=== PATIENT | male | born 1970 | race Caucasian/White ===

== ENCOUNTER 2024-12-14 10:00 | Emergency (ER) | payer OTHER, SELFPAY ==
--- NOTE | ~2024-12-14 | US_ITS ---
EXAMINATION: US TRIPLEX LOWER EXTREMITY, LEFT CLINICAL INFORMATION: Pain, left lower extremity. COMPARISON: None available. TECHNIQUE: Color-flow triplex imaging with spectral analysis and compression Doppler were performed on the left lower extremity. FINDINGS: Respiratory variation, normal compression and augmented flow are noted throughout the left common femoral vein, superficial femoral vein, profunda femoral vein, popliteal vein and midcalf peroneal and posterior tibial venous segments . There is no Spears's cyst. US/US venous duplex LE IMPRESSION: No acute deep venous thrombosis involving the left lower extremity. Negative DVT exam. Electronically signed by: Rohith Vargas MD 12/14/2024 11:38 AM EDT
[2024-12-14 10:26] VITALS: BP 134/84; PULSE 110; RESP 22; TEMP 36.8; O2SAT 98; BMI 32.0
[2024-12-14 10:43] LABS: MANUAL DIFF FLAG NO
[2024-12-14 10:45] LABS: Basophils Absolute Auto 0.1 X10*3/uL (0.0-0.2); Basophils Percent Auto 0.5 % (0-2); Eosinophils Absolute Auto 0.3 X10*3/uL (0.0-0.4); Eosinophils Percent Auto 3.6 % (0-4); Hematocrit 43.1 % (42.0-52.0); Imm Gran Abs Auto 0.03 X10*3/uL (0.00-0.03); Imm Gran Pct Auto 0.3 % (0.0-0.4); Lymphocytes Absolute Auto 2.9 X10*3/uL (1.2-4.9); Lymphocytes Percent Auto 30.3 % (20-40); Mean Corpuscular HGB Conc 34.8 g/dl (31.0-36.0); Mean Corpuscular Hemoglobin 31.3 pg (27.0-33.0); Mean Platelet Volume 9.6 fL (9.4-12.4); Monocytes Absolute Auto 0.5 X10*3/uL (0.1-1.2); Monocytes Percent Auto 5.6 % (2-11); Neutrophils Absolute Auto 5.7 x10*3/uL (2.0-8.3); Neutrophils Percent Auto 59.7 % (45-73); Platelet Count 213 X10*3/uL (160-400); Red Blood Count 4.79 X10*6/uL (4.60-5.80); Red Cell Distribution Width 13.4 % (11.0-16.0); White Blood Count 9.6 X10*3/uL (4.8-10.8)
[2024-12-14 10:51] LABS: Prothrombin Time 11.8 SEC (10.9-12.4)
[2024-12-14 11:16] LABS: Alanine Aminotransferase 95 U/L (0-40); Albumin Level 4.6 g/dL (3.5-5.0); Alkaline Phosphatase 125 U/L (39-117); Anion Gap 17 (12-20); Aspartate Amino Transferase 69 U/L (5-37); Bilirubin Total 0.7 mg/dL (0.0-1.0); Blood Urea Nitrogen 13 mg/dL (9-16); Calcium 9.7 mg/dL (8.4-10.2); Carbon Dioxide 22 mmol/L (22-29); Chloride 103 mmol/L (96-108); Creatinine Clr Calc Pharmacy 142.3; Estimated Glomerular Filt Rate > 60; Glucose Random 254 mg/dL (60-115); Potassium 4.2 mmol/L (3.3-5.1); Sodium 138 mmol/L (135-145); Total Protein 8.4 g/dL (6.5-8.0)
--- NOTE | 2024-12-14 11:50 | ED.GENADULT ---
HPI - General Adult General Chief complaint: General Medical Stated complaint: sciatica pain Time Seen by Provider: 12/14/24 11:50 Source: patient Mode of arrival: ambulatory Limitations: no limitations History of Present Illness ED Provider: Kanwal Jesus PA-C HPI narrative: Patient is a 54 year old male with a past medical history of right shoulder injury and previous [place] who presents to the ED for complaints of left leg pain. He states the pain began 2 weeks ago and has been intermittent. It radiates from his left buttock down to his left foot. He also endorses some intermittent numbness of his left calf and foot. Denies weakness of the extremity. He denies any recent events that could have led to injury of the area. States he has been stretching the extremity with no relief. He also endorses right shoulder and neck pain for which he currently has an outpatient MRI scheduled. He has no other complaints at this time. Onset (ago): week(s) (2) Location: buttocks and lower extremity Radiation: distal Quality: dull Pain Consistency: intermittent Relieving factors: immobilization Exacerbating factors: movement Associated symptoms: denies other symptoms Related Data Previous Rx's ?Medication ?Instructions ?Recorded cyclobenzaprine 5 mg tablet 5 mg PO TID PRN muscle spasm 7 12/14/24 days #21 tabs prednisone 20 mg tablet 20 mg PO DAILY 7 days #7 tabs 12/14/24 Allergies Allergy/AdvReac Type Severity Reaction Status Date / Time No Known Allergies Allergy Verified 12/14/24 10:31 Review of Systems Review of Systems: Yes all other systems are reviewed and are negative Constitutional: Constitutional: Reports no additional constitutional complaints, Denies chills, Denies fever(s) and Denies night sweats Eyes: Eyes: Reports no additional eye complaints, Denies blurry vision, Denies change in vision, Denies diplopia, Denies eye discharge, Denies loss of vision and Denies eye pain ENT: Denies dizziness Cardiovascular: Cardiovascular: Reports no additional cardiovascular complaints, Denies chest pain, Denies lightheadedness, Denies Loss of Consciousness and Denies dyspnea Respiratory: Respiratory: Reports no additional respiratory complaints and Denies dyspnea Gastrointestinal: Gastrointestinal: Reports no additional gastrointestinal complaints, Denies abdominal pain, Denies melena, Denies hematochezia, Denies change in bowel habits and Denies change in stool character Genitourinary: Genitourinary: Reports no additional male genitourinary complaints, Denies hematuria, Denies oliguria, Denies difficulty urinating, Denies dysuria, Denies urinary frequency, Denies urinary hesitancy, Denies urinary incontinence and Denies urinary urgency Musculoskeletal: Musculoskeletal: Reports no additional musculoskeletal complaints, Reports back pain (left sided) and Reports radiating pain into limb Comments: intermittent numbness and tingling in the left lower leg, foot, and toes Neurologic: Denies dizziness and Denies loss of vision Psychiatric: Psychiatric: Reports no additional psychiatric complaints Endocrine: Endocrine: Reports no additional endocrine complaints Hematologic/Lymphatic: Hematologic/Lymphatic: Reports no additional hematologic/lymphatic complaints Allergic/Immunologic: Allergic/Immunologic: Reports no additional allergic/immunologic complaints PMFSH Past Medical History Attestation statement: The following information was validated with the patient. Source: old records reviewed and nursing notes reviewed Social History Social History Advance Directives: Yes Advance Directives Information Provided: Yes Advance Directives on File: No Physical Exam ED Vital Signs: Vital Signs - 24 hr 12/14/24 10:26 12/14/24 12:00 12/14/24 12:57 Temperature 98.2 F 98.4 F 98.4 F Pulse Rate 110 H 99 99 Respiratory Rate 22 H 12 12 Blood Pressure 134/84 127/93 H 127/93 H Pulse Oximetry 98 97 97 Oxygen Delivery Method Room Air Room Air Room Air BMI result Body Mass Index 32.0 Const General: cooperative, no acute distress, alert and awake Nutritional Appearance: well nourished Orientation/consciousness: patient oriented x3 Limitations: no limitations [facility] Head: Yes normal to inspection and Yes atraumatic Ears: hearing grossly normal bilaterally and external ears normal General nose exam: Normal external nose present, no nasal discharge noted and no epistaxis Face and sinus: Yes normal facial exam, No abrasion and No laceration Mouth: Normal oral and palatal mucosa present, no drooling and no muffled voice Eyes General: appearance normal, both eyes and all related structures Periorbital: periorbital findings normal Eyelids: Yes eyelids normal Conjunctivae: conjunctivae normal Pupils: Equal, round and reactive pupils present EOM: EOMs intact bilaterally Neck Neck: Yes normal visual inspection, Yes full ROM and Yes no lymphadenopathy Chest Chest palpation & inspection: normal inspection of the chest Resp Effort & Inspection: normal respiratory effort and able to speak in complete sentences GI Inspection: Yes normal to inspection Back/Spine/Pelvis Cervical Spine: normal cervical lordosis Thoracic/Lumbar Spine: thoraco-lumbar ROM normal Pelvis: buttock tenderness Neuro General: patient oriented x3, moves all extremities and CN's II-XI intact bilaterally Cranial nerves: Yes Equal, round and reactive pupils present Cognition (Neuro): normal cognition Motor exam (neuro): 5/5 motor strength present throughout Extrem General: Yes normal to inspection, Yes full ROM and Yes capillary refill normal Left lower extremity: full ROM, normal capillary refill, hip/thigh Details: normal ROM, knee Details: normal ROM, lower leg, ankle Details: normal ROM and foot Details: normal capillary refill, normal to inspection, no edema and motor-sensory exam; no cyanosis and no edema Psych Appearance: grossly normal Mental Status: mental status grossly normal Affect: normal affect Attitude: cooperative Thought process: Normal thought process present Thought content: Normal thought content present Insight: Good insight present (Psych) Medications Administered Discontinued Medications Generic Name Dose Route Start Last Admin Trade Name Freq PRN Reason Stop Dose Admin Cyclobenzaprine HCl 5 mg 12/14/24 12:18 12/14/24 12:43 Cyclobenzaprine Hcl 5 Mg Tablet PO 12/14/24 12:19 5 mg ONCE ONE Administration Methylprednisolone Sodium Succinate 60 mg 12/14/24 12:18 12/14/24 12:44 Methylprednisolone Sod Succ 125 Mg/2 Ml Vial IM 12/14/24 12:19 60 mg ONCE ONE Administration Medical Decision Making Medical Decision Making [facility] Narrative: Patient is a 54 year old male who presented to the ED for intermittent left lower extremity pain and numbness that began 2 weeks ago. LLE ultrasound was done which was negative for DVT. He has no recent history of injuries or to the lower back making HNP less likely. His DP and PT pulses are intact with good capillary refill of the LLE. He maintains 5/5 strength with dorsiflexion and plantarflexion. His symptoms of pain radiating from his buttock down the left lower extremity and intermittent paresthesias are consistent with sciatica. Patient's labs unremarkable. Patient appeared well and in no acute distress in the emergency department. His vitals remained within normal limits. I explained my physical exam findings as well as all test results to the patient. I answered all questions asked by the patient. I stressed the importance of the patient taking his medication as directed (either prescribed or as the over the counter packaging recommends). I stressed the importance of the patient following up with his primary care provider and a exercise equipment specialist. I stressed the importance of the patient returning to the emergency department immediately if his symptoms were to worsen or if he were to develop any dizziness, shortness of breath, difficulty breathing, chest pain, blurry vision, loss of vision, nausea, vomiting, abdominal pain, fever, chills, back pain, or any other complaints. Patient verbalized agreement and understanding with this treatment plan and discharge. Differential Diagnosis Differential Diagnoses: The differential diagnosis associated with the presentation includes Low back pain Sciatica Lumbar strain Lumbar sprain Admission/Observation Consideration of admission/observation: Escalation of care including admission/observation considered Patient would have been admitted to the hospital had his work up had any findings where hospital admission was appropriate and his clinical presentation warranted hospital admission. Lab Data [facility] Lab Attestation statement: I reviewed the patient's lab results. My interpretation of these results are in the [facility] Rationale portion of this note. 12/14/24 10:40 12/14/24 10:40 Labs: Lab Results 12/14/24 Range/Units 10:40 WBC 9.6 (4.8-10.8) X10*3/uL RBC 4.79 (4.60-5.80) X10*6/uL Hgb 15.0 (14.0-18.0) g/dl Hct 43.1 (42.0-52.0) % MCV 90.0 (80.0-98.0) fL MCH 31.3 (27.0-33.0) pg MCHC 34.8 (31.0-36.0) g/dl RDW 13.4 (11.0-16.0) % Plt Count 213 (160-400) X10*3/uL MPV 9.6 (9.4-12.4) fL Immature Gran % (Auto) 0.3 (0.0-0.4) % Neut % (Auto) 59.7 (45-73) % Lymph % (Auto) 30.3 (20-40) % Lanier % (Auto) 5.6 (2-11) % Eos % (Auto) 3.6 (0-4) % Baso % (Auto) 0.5 (0-2) % Lymph # (Auto) 2.9 (1.2-4.9) X10*3/uL Lanier # (Auto) 0.5 (0.1-1.2) X10*3/uL Eos # (Auto) 0.3 (0.0-0.4) X10*3/uL Baso # (Auto) 0.1 (0.0-0.2) X10*3/uL Abs Immat Gran (auto) 0.03 (0.00-0.03) X10*3/uL Absolute Neuts (auto) 5.7 (2.0-8.3) x10*3/uL Absolute Nucleated RBC 0.000 (0.0-0.012) X10*3/uL Nucleated RBC % (auto) 0.0 (0.0-0.2) /100WBC PT 11.8 (10.9-12.4) SEC INR 1.0 (0.9-1.1) Sodium 138 (135-145) mmol/L Potassium 4.2 (3.3-5.1) mmol/L Chloride 103 (96-108) mmol/L Carbon Dioxide 22 (22-29) mmol/L Anion Gap 17 (12-20) BUN 13 (9-16) mg/dL Creatinine 0.79 (0.5-1.4) mg/dL Estim Creat Clear Calc 142.3 Estimated GFR > 60 Random Glucose 254 H (60-115) mg/dL Uric Acid 7.0 (3.4-7.0) mg/dL Calcium 9.7 (8.4-10.2) mg/dL Total Bilirubin 0.7 (0.0-1.0) mg/dL AST 69 H (5-37) U/L ALT 95 H (0-40) U/L Alkaline Phosphatase 125 H (39-117) U/L Total Protein 8.4 H (6.5-8.0) g/dL Albumin 4.6 (3.5-5.0) g/dL Independent Interpretation I performed an independent interpretation of an: Ultrasound Interpretation: My interpretation is in agreement with the radiologist's impression of this imaging study. EXAMINATION: US TRIPLEX LOWER EXTREMITY, LEFT CLINICAL INFORMATION: Pain, left lower extremity. COMPARISON: None available. TECHNIQUE: Color-flow triplex imaging with spectral analysis and compression Doppler were performed on the left lower extremity. FINDINGS: Respiratory variation, normal compression and augmented flow are noted throughout the left common femoral vein, superficial femoral vein, profunda femoral vein, popliteal vein and midcalf peroneal and posterior tibial venous segments . There is no Spears's cyst. US/US venous duplex LE LT IMPRESSION: No acute deep venous thrombosis involving the left lower extremity. Negative DVT exam. Electronically signed by: Rohith Vargas MD 12/14/2024 11:38 AM EDT RP Dictated By: Rohith Adkins MD Signed By: Electronically signed by Rohith Cannon MD 12/14/24 113 Radiology Impression Discussion of test interpretation with radiology: I have reviewed the radiologist's reading. Prescription Management I considered prescription management with: Pain Medication (patient prescribed pain medication) Discharge Plan Discharge Clinical Impression: Sciatica Patient Disposition: Home, Self-Care Instructions: Sciatica (ED) Additional Instructions: Follow up with your primary care provider and a exercise equipment specialist. Return to the emergency department immediately if your symptoms worsen or if you develop any numbness, tingling, dizziness, shortness of breath, difficulty breathing, chest pain, blurry vision, loss of vision, nausea, vomiting, abdominal pain, fever, chills, back pain, or any other complaints. Please see the information below about our Patient Portal. If you are not yet enrolled in the [facility] Patient Portal, you will receive an enrollment email invitation following your visit to any [facility] setting. You may also self-enroll in the Patient Portal by visiting our website: [email or web address] The following information is required to access the Patient Portal: - Your [facility] Medical Record Number - Your personal home email address (must match what is in your electronic medical record, Registration staff can assist with this) - Name - Date of Capabilities of the Patient Portal: - Message some providers - View upcoming appointments - Access your health summary, medical history, and visit history - View current conditions and allergies - View procedure and lab results - View your medications, including guidelines, side effects, and precautions - Complete pre-appointment questionnaires requested by your provider - Ready summary reports of your office visits and procedures To access the Patient Portal Mobile Jie, follow these directions: - Search [employer] in the Jie Store or Google Play Store - Download the Jie - Search for [facility] - Enter your login/password Prescriptions: New prednisone 20 mg tablet 20 mg PO DAILY 7 Days Qty: 7 0RF cyclobenzaprine 5 mg tablet 5 mg PO TID PRN (Reason: muscle spasm) 7 Days Qty: 21 0RF Referrals: [facility] [Provider Group] (Call to establish and follow up with a exercise equipment specialist.) [facility] [Provider Group] (Call to establish and follow up with a exercise equipment specialist.) Shant Castillo MD [Primary Care Provider] - Interventions: ED Discharge Assessment Last Done: 12/14/24 12:57 Discharge Date/Time: 12/14/24 12:58 Print Language: Prydeinig
[2024-12-14 12:00] VITALS: BP 127/93; PULSE 99; RESP 12; TEMP 36.9; O2SAT 97
[2024-12-14] MEDS: Cyclobenzaprine HCl 5 MG TABLET PO (12:43)
[2024-12-14] MEDS: methylPREDNISolone Sod Succ 125 MG/2 ML VIAL 60 MG IM (12:44)
[2024-12-14 12:57] VITALS: BP 127/93; PULSE 99; RESP 12; TEMP 36.9; O2SAT 97
== END 2024-12-14 12:58 | disposition home or self-care (01) ==
PROVIDERS: Emergency Provider Emergency Medicine Emergency Medical Services; PCP Internal Medicine
DX: M54.42 Lumbago with sciatica, left side (principal); R60.0 Localized edema; R20.0 Anesthesia of skin
CPT/HCPCS: 36415; 80053; 84550; 85025; 85610; 93971; 96372; 99283; 99284; J2919

== ENCOUNTER → 2024-12-14 11:22 | Outpatient (BNV) | payer OTHER, SELFPAY | PROVIDERS: Emergency Provider Emergency Medicine Emergency Medical Services; PCP Internal Medicine; Visit Provider Radiology Diagnostic Radiology | DX: M54.32 Sciatica, left side (principal) | CPT/HCPCS: 93971 ==

== ENCOUNTER 2025-09-08 17:42 | Emergency (ER) | payer OTHER, SELFPAY ==
--- NOTE | ~2025-09-08 | XR_ITS ---
CLINICAL HISTORY: cough 2 view chest x-ray. Comparison: None provided Findings: Heart size is normal. No consolidation or effusion. No acute fracture. The visualized upper abdomen is unremarkable. Impression: No acute cardiopulmonary process. This document has been electronically signed by: Nayeli Woodward MD on 09/08/2025 19:27:36
--- OUTSIDE RECORDS SUMMARY | 2025-09-08 11:30 | XMS_ITS | Encounter Summary ---
Author Organization [facility] Address [address] [place] [address] Care Team Providers Care Cpa Tax Name Role Phone Tommie Dunn Primary Care Provider [phone] Reason for Visit * Reason Comments Cough X 3 days Nasal Congestion Encounter Details Date Type Department Care Team (Late st Contact Info) Description 09/08/2025 11:30 AM EST Office Visit Adult Medicine [facility] [address] [place], [place] [phone] Mikal Dangelo PA [address] [place], [place] Rhonchi at right lung base (Primary Dx); Acute cough; Sinus pressure Social History Tobacco Use Types Packs/Day Years Used Date Smoking Tobacco: Every Day Cigarettes 0.5 33.9 Started: 09/30/1991 Smokeless Tobacco: Never Tobacco Cessation:Ready to Q uit: Not Asked; Counseling Given: Not Answered Alcohol Use Standard Drinks/Week Comments Yes 16.7 (1 standard drink = 0.6 oz pure alcohol) Housing Instability Answer Date Recorde d Are you worried that in the next 2 months you may not have stable housing? No 05/06/2025 Food Access & Nutrition Answer Date Rec orded Do you have access to a vari ety of food including fruits and vegetables? Yes 05/06/2025 Health Literacy Answer Date Recorded How often do you need to hav e someone help you when you read instructions, pamphlets, or other written material from your doctor or pharmacy? Never 05/06/2025 Caregiver: How often do you need to have someone help you when you read instructions, pamphlets, or other written material from your doctor or pharmacy? Not on file 05/06/2025 Financial Risk Answer Date Recorded How hard is it for you to pa y for the very basics like food, housing, medical care, and air conditioning / heating? Not very hard 05/06/2025 Transportation Answer Date Recorded Has the lack of transportati on kept you from meetings, work, or from getting things needed for daily living? No Has the lack of transportati on kept you from medical appointments or from getting medications? No 05/06/2025 Social Isolation Answer Date Recorded How often do you feel lonely or isolated from th ose around you? Never 05/06/2025 Food Risk Answer Date Recorded Within the past 12 months we worried whether our food would run out before we got money to buy more. Never true 05/06/2025 Within the past 12 months th e food we bought just didn't last and we didn't have money to get more. Never true 05/06/2025 Dependent Care Answer Date Recorded Do you need help finding or paying for care for your loved ones. For example, child psychiatrist or elderly care for an older adult? No 05/06/2025 Education Answer Date Recorded Do you think completing more education or training, like finishing a GED, going to college, or learning a trade, would be helpful for you? No 05/06/2025 Employment and Income Answer Date Recor ded During the last four weeks, have you been actively looking for work? No 05/06/2025 Living Situation Answer Date Recorded What is your living situation? Unrecognized valu e 05/06/2025 Interpersonal Safety Answer Date Record ed Physical Abuse Unrecognized value 05/20/2025 Verbal Abuse Unrecognized value 05/20/2025 Sex and Gender Information Value Date Recorded Sex Assigned at Not on file Legal Sex Male 9:43 AM EST Gender Identity Not on file Sexual Orientation Not on file documented as of this encounter Last Filed Vital Signs Vital Sign Reading Time Taken Comments Blood Pressure 100/79 09/08/2025 11:40 AM EST Pulse 125 09/08/2025 11:40 AM EST Temperature 36.2 C (97.1 F) 09/08/2025 11:40 AM EST Respiratory Rate 15 09/08/2025 11:40 AM EST Oxygen Saturation 96% 09/08/2025 11:40 AM EST Inhaled Oxygen Concentration - - Weight 104 kg (229 lb) 09/08/2025 11:40 AM EST Height 180.3 cm (5' 11 ) 09/08/2025 11:40 AM EST Body Mass Index 31.94 09/08/2025 11:40 AM EST documented in this encounter Ordered Prescriptions Prescription Sig Dispense Quantity Refills Last Filled Start Date End Date doxycycline (VIBRAMYCIN) 100 mg capsule Take 1 capsule (100 mg total) by mouth 2 (two) times a day for 7 days. Take with at least 8 ounces (large glass) of water, do not lie down for 30 minutes after. Administer 2 hours before or after multivitamins, antacids, or other products containing polyvalent cations (i.e., calcium, iron, magnesium, selenium, zinc). 14 each 09/08/2025 amoxicillin-clavul anate (AUGMENTIN) 875-125 mg per tablet Take 1 tablet by mouth 2 (two) times a day for 7 days. 14 each 09/08/2025 5 documented in this encounter Progress Notes * JOE Jaime - 09/08/2025 11:30 AM EST CHIEF COMPLAINT: Cough (X 3 days) and Nasal Congestion IDENTIFIER: Joe Chen is a 55 y.o. old male who comes alone. HPI: 55 y/o M presenting with sinus congestion and cough x 3 days. He also reports some intermittent headaches. Denies chest pain or dyspnea. He does report some rib discomfort with coughing. When he laysflat the post nasal drip worsens the coughing but no orthopnea. No syncope, near syncope, fevers, or chills. No travel or surgery in last 3 months. 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 Wt Readings from Last 5 Encounters: 09/08/25 104 kg (229 lb) 06/07/25 110 kg (242 lb 12.8 oz) 05/14/25 107 kg (235 lb) 05/06/25 107 kg (235 lb 6.4 oz) 04/30/25 107 kg (236 lb) Pulse Readings from Last 3 Encounters: 09/08/25 (!) 125 06/07/25 73 05/20/25 98 ROS: See HPI No leg swelling or calf tenderness. Long standing hx of sciatica. No abdominal pain or bruising. PAST MEDICAL HISTORY: Patient Active Problem List Diagnosis Date Noted Right thyroid nodule 04/30/2025 Class 1 obesity 09/04/2024 Type 2 diabetes mellitus without complication, without long-term current use of insulin ([facility] V24, [facility] V28) 05/26/2024 Obstructive sleep apnea 08/12/2017 Bicuspid aortic valve 10/17/2016 Obesity 07/15/2014 Dilated aortic root ([facility] V24) 06/25/2014 Dyslipidemia 12/29/2012 HTN (hypertension) 12/29/2012 Elevated LFTs 12/13/2011 Old DE (myocardial infarction) 07/16/2008 Tobacco use disorder 06/04/2006 Gout, unspecified 11/24/2005 Sprain of acromioclavicular ligament 11/24/2005 ACTIVE MEDICATIONS: Medications Taking[1] ALLERGIES: Current Allergies[2] PHYSICAL EXAM: Visit Vitals BP 100/79 Pulse (!) 125 Temp 36.2 ??C (97.1 ??F) (Temporal) Resp 15 Ht 1.803 m (71 ) Wt 104 kg (229 lb) SpO2 96% BMI 31.94 kg/m?? Smoking Status Every Day BSA 2.23 m?? APPEARANCE: Alert and in no acute distress HEART: tachycardia, 2/6 systolic murmur LUNG: expiratory rhonchi right lung base. Otherwise CTAB. EXTREMITIES: Extremities warm and well perfused without clubbing, cyanosis, or edema. No calf tenderness. SKIN: Skin color, texture, turgor normal. No rashes or lesions. PSYCH: Stable mood and affect. Nonpressured speech. IMPRESSION: 1. Rhonchi at right lung base 2. Acute cough 3. Sinus pressure PLAN: I am worried he has pneumonia based on the tachycardia, cough, abnormal lung sounds. Will get x-ray. Will also check CBC and CMP. Will start treatment with augmentin and doxycycline for 7 days. SE reviewed. Discussed that pneumonia can be life threatening, and in the event of worsening symptoms despite treatment (if not having any improvement after 2-4 days) he needs ER evaluation. He agreed withthe above plan. My colleagues and I have maintained a longitudinal relationship with this patient and serve as a focal point of their care. Orders Placed This Encounter Procedures XR Chest 2 Views CBC and differential Comprehensive metabolic panel ADDITIONAL ORDERS: None Today's documentation was made using voice recognition software.This note may contain grammatical errors secondary to this software. JOE Jaime on 09/08/2025 at 11:57 AM EST [1] Outpatient Medications Marked as Taking for the 09/08/25 encounter (Office Visit) with JOE Jaime Medication Sig Dispense Refill allopurinoL (ZYLOPRIM) 100 mg tablet TAKE 1 TABLET BY MOUTH DAILY. TAKE IN ADDITION TO A 300 MG TAB, TOTAL 400 MG DAILY 90 tablet 1 allopurinoL (ZYLOPRIM) 300 mg tablet TAKE 1 TABLET BY MOUTH DAILY. TAKE IN ADDITION TO A 100 MG TAB, TOTAL 400 MG DAILY 90 tablet 1 amLODIPine (NORVASC) 10 mg tablet TAKE 1 TABLET BY MOUTH EVERY DAY 90 tablet 1 aspirin 81 mg EC tablet Take 1 Tab by mouth daily. atorvastatin (LIPITOR) 40 mg tablet Take 1 tablet (40 mg total) by mouth 1 (one) time each day. 90 each 3 blood sugar diagnostic (FreeStyle Lite Strips) test strip Use to check blood sugar once daily blood-glucose meter misc fluticasone propionate (FLONASE) 50 mcg/actuation nasal spray 2 Sprays by Each Nare route daily. FREESTYLE LANCETS MISC Use to check blood sugar once daily hydrOXYzine HCL (ATARAX) 25 mg tablet TAKE 1 TABLET BY MOUTH ONCE DAILY NEEDED FOR ITCHING. 90 tablet 3 lisinopriL (PRINIVIL,ZESTRIL) 10 mg tablet TAKE 1 TABLET BY MOUTH EVERY DAY 90 tablet 1 metFORMIN (GLUCOPHAGE) 500 mg tablet TAKE 1 TABLET BY MOUTH TWICE A DAY WITH MEALS 180 tablet 1 metoprolol succinate (TOPROL-XL) 100 mg 24 hr tablet Take 1 tablet (100 mg total) by mouth 1 (one) time each day. 90 tablet 3 oxyCODONE (ROXYBOND) 5 mg immediate release abuse-deterrent tablet Take 1 tablet (5 mg total) by mouth every 6 (six) hours if needed for severe pain. Max Daily Amount: 20 mg 12 tablet 0 traZODone (DESYREL) 50 mg tablet TAKE 1 TO 3 TABLET BY MOUTH AT BEDTIME NEEDED FOR SLEEP 270 tablet 1 [2] No Known Allergies documented in this encounter Plan of Treatment Upcoming Encounters Date Type Department Care Team (Late st Contact Info) Description 09/27/2025 10:00 AM EST Consult Adult Medicine [address] [phone] Tommie Dunn PA [address] [place] [phone] 10/13/2025 3:30 PM EST Office Visit [address] [phone] Tommie Dunn PA [address] [place] [phone] 11/02/2025 10:30 AM EST Consult Gastroenterology - [address] [phone] aLura Melvin PA [address] [address] documented as of this encounter Results * (ABNORMAL) Comprehensive metabolic panel (09/08/2025 12:38 PM EST) Sodium 129(L) 133 - 145 mmol/L 09/08/2025 5:03 PM [facility] Potassium 3.5 3.5 - 5.5 mmol/L 09/08/2025 5:03 PM [facility] Chloride 92(L) 96 - 110 mmol/L 09/08/2025 5:03 PM [facility] CO2 21 21 - 32 mmol/L 09/08/2025 5:03 PM [facility] Anion Gap 16(H) 3 - 11 09/08/2025 5:03 PM [facility] Glucose 275(H) 70 - 100 mg/dL 09/08/2025 5:03 PM [facility] BUN 8 5 - 25 mg/dL 09/08/2025 5:03 PM [facility] Creatinine 0.97 0.70 - 1.30 mg/dL 09/08/2025 5:03 PM [facility] eGFR 93 >=60 mL/min/1. 73m2 09/08/2025 5:03 PM [facility] Comment:Calculation based on the Chronic Kidney Disease Epidemiology Collaboration (CKD-EPI) equation refit without adjustment for race. BUN/Creatinine Ratio 8.2 09/08/2025 5:03 PM [facility] Calcium 8.5 8.5 - 10.5 mg/dL 09/08/2025 5:03 PM [facility] AST (SGOT) 132(H) 10 - 42 unit/L 09/08/2025 5:03 PM [facility] ALT (SGPT) 208(H) 10 - 60 unit/L 09/08/2025 5:03 PM [facility] Alkaline Phosphatase 232(H) 42 - 121 unit/L 09/08/2025 5:03 PM [facility] Total Protein 7.4 6.0 - 8.0 g/dL 09/08/2025 5:03 PM [facility] Albumin 4.1 3.2 - 5.0 g/dL 09/08/2025 5:03 PM [facility] Total Bilirubin 1.3 0.0 - 1.4 mg/dL 09/08/2025 5:03 PM [facility] Blood Venous blood specimen / Unknown Venipuncture / Unknown 09/08/2025 12:38 PM EST 09/08/2025 12:38 PM EST us Mikal DIAZ LAB BLOOD ORDERABLES Fin al Result [facility] [address] [place] [address], * XR Chest 2 Views (09/08/2025 12:05 PM EST) Anatomical Region Laterality Modality Body Radiographic Rachel ging 09/08/2025 3:32 PM EST Impressions 09/08/2025 3:38 PM EST No evidence of an acute chest process. POS - [id number] -------- FINAL REPORT -------- Dictated By: Maribell Chen Dictated Date: 09/08/2025 15:32 ET Assigned Physician: Maribell Chen Reviewed and Electronically Signed By: Maribell Chen Signed Date: 09/08/2025 15:38 ET Workstation ID: [id number] Transcribed By: Self Edit Transcribed Date: 09/08/2025 15:32 ET Narrative 09/08/2025 3:38 PM EST EXAM: Chest x-ray HISTORY: Cough. Rhonchi at right lung base. COMPARISON: None FINDINGS: PA and lateral views of the chest were performed. No focal infiltrate, pleural effusion, or evidence of pulmonary edema. Heart is not enlarged. Mediastinal contours appear within normal limits. Minimal anterior wedging of what appear to be T11 and T12 could be physiologic. Surgical clips in the right lower neck. Procedure Note Maribell Chen MD - 09/08/2025 EXAM: Chest x-ray HISTORY: Cough. Rhonchi at right lung base. COMPARISON: None FINDINGS: PA and lateral views of the chest were performed. No focal infiltrate, pleural effusion, or evidence of pulmonary edema.Heart is not enlarged. Mediastinal contours appear within normal limits.Minimal anterior wedging of what appear to be T11 and T12 could bephysiologic. Surgical clips in the right lower neck. IMPRESSION: No evidence of an acute chest process. POS - [id number] -------- FINAL REPORT -------- Dictated By: Maribell Chen Dictated Date: 09/08/2025 15:32 ET Assigned Physician: Maribell Chen Reviewed and Electronically Signed By: Maribell Chen Signed Date: 09/08/2025 15:38 ET Workstation ID: [id number] Transcribed By: Self Edit Transcribed Date: 09/08/2025 15:32 ET us Mikal DIAZ IMG XR PROCEDURES Final Result documented in this encounter Visit Diagnoses Diagnosis Rhonchi at right lung base- Primary Acute cough Sinus pressure Other diseases of nasal cavity and sinuses Rhonchi at right lung base Acute cough Sinus pressure Other diseases of nasal cavity and sinuses documented in this encounter Additional Health Concerns Assessment Noted Time PHQ-9 Depression Total Score: 0 05/06/20 25 10:18 AM EDT documented as of this encounter Care Teams Cpa Tax Relationship Specialty Start Date End Date Tommie Dunn PA [address] [place] [address] PCP - General Internal Medicine 01/05/21 documented as of this encounter
--- OUTSIDE RECORDS SUMMARY | 2025-09-08 11:57 | XMS_ITS | Encounter Summary ---
Author Organization [facility] [place] [address] Care Team Providers Care Automotive Technology Instructor Name Role Phone Tommie Dunn Primary Care Provider [phone] Encounter Details Date Type Department Care Team (Latest Contact Info) Description 09/08/2025 11:57 AM EST Hospital Encounter XRAY - [place] [address] [facility] [place] [address] Rhonchi at right lung base; Acute cough; Sinus pressure Social History Tobacco Use Types Packs/Day Years Used Date Smoking Tobacco: Every Day Cigarettes 0.5 33.9 Started: 09/30/1991 Smokeless Tobacco: Never Alcohol Use Standard Drinks/Week Comments Yes 16.7 [...] for your loved ones. For example, child welfare specialist or elderly care for an older adult? [...] on file documented as of this encounter Plan of Treatment Upcoming Encounters Date Type Department Care Team (Late st Contact Info) Description 09/27/2025 10:00 AM EST Consult Adult Medicine [address] [phone] Tommie Dunn PA [address] [place] [phone] 10/13/2025 3:30 PM EST Office Visit Adult Medicine [address] [phone] Tommie Dunn PA [address] [place] [phone] 11/02/2025 10:30 AM EST Consult Gastroenterology - [address] [facility] [address] [place] [address] Laura Melvin PA [address] [facility] [address] [place] [address] documented as of this encounter Procedures Procedure Name Priority Date/Time Associated Diagnosis Comments XR CHEST 2 VIEWS Routine 09/08/2025 12:0 5 PM EST Rhonchi at right lung base Acute cough Sinus pressure documented in this encounter Results * XR Chest 2 Views (09/08/2025 12:05 PM EST) Anatomical Region Laterality Modality Body Radiographic Rachel ging 09/08/2025 3:32 PM EST Impressions 09/08/2025 3:38 PM EST No evidence of an acute chest process. POS - [id number] -------- FINAL REPORT -------- Dictated By: Maribell Chen Dictated Date: 09/08/2025 15:32 ET Assigned Physician: Maribell Chen Reviewed and Electronically Signed By: Maribell Chen Signed Date: 09/08/2025 15:38 ET Workstation ID: [id number] Transcribed By: Self Edit Transcribed Date: 09/08/2025 [...] of an acute chest process. POS - [id number] -------- FINAL REPORT -------- Dictated By: Maribell Chen Dictated Date: 09/08/2025 15:32 ET Assigned Physician: Maribell Chen Reviewed and Electronically Signed By: Maribell Chen Signed Date: 09/08/2025 15:38 ET Workstation ID: [id number] Transcribed By: Self Edit Transcribed Date: 09/08/2025 15:32 ET Mikal DIAZ IMG XR PROCEDURES Final Result documented in this encounter Visit Diagnoses Diagnosis Rhonchi at right lung base Acute cough Sinus pressure Other diseases of nasal cavity and sinuses documented in this encounter Additional Health Concerns Assessment Noted Time PHQ-9 Depression Total Score: 0 05/06/20 25 10:18 AM EDT documented as of this encounter Care Teams Automotive Technology Instructor Relationship Specialty Start Date End Date Tommie Dunn PA [address] [place] [phone] PCP - General Internal Medicine 01/05/21 documented as of this encounter
--- OUTSIDE RECORDS SUMMARY | 2025-09-08 12:10 | XMS_ITS | Encounter Summary ---
Author Organization [facility] [place] [address] Care Team Providers Care Platform Operations Director Name Role Phone Tommie Dunn Primary Care Provider [phone] Encounter Details Date Type Department Care Team (Late st Contact Info) Description 09/08/2025 12:10 PM EST Lab Draw Station [address] Rhonchi at right lung base; Acute cough; Sinus pressure; Pre-op examination; History of partial thyroidectomy Social History Tobacco Use Types Packs/Day Years [...] for your loved ones. For example, child monitor or elderly care for an older adult? [...] 09/27/2025 10:00 AM EST Consult Adult Medicine [address] [phone] Tommie Dunn PA [address] [place] [phone] 10/13/2025 3:30 PM EST Office Visit Adult Medicine [address] [phone] Tommie Dunn PA [address] [place] [phone] 11/02/2025 10:30 AM EST Consult Gastroenterology - [address] [facility] [address] [place] [phone] Laura Melvin PA [address] [facility] [address] [place] [address] documented as of this encounter Procedures Procedure Name Priority Date/Time Associated Diagnosis Comments CBC WITH AUTO DIFFERENTIAL Routine 09/08/2025 12:38 PM EST Rhonchi at right lung base Acute cough Sinus pressure CBC AND DIFFERENTIAL Routine 09/08/2025 12:38 PM EST Rhonchi at right lung base Acute cough Sinus pressure THYROID STIMULATING HORMONE Routine 09/08/2025 12:38 PM EST History of partial thyroidectomy COMPREHENSIVE METABOLIC PANEL Routine 09/08/2025 12:38 PM EST Rhonchi at right lung base Acute cough Sinus pressure documented in this encounter Results * (ABNORMAL) CBC auto differential (09/08/2025 12:38 PM EST) WBC 15.3(H) 4.8 - 10.8 K/mcL LAB HEMETOLOGY METHOD 09/08/2025 2:37 PM [facility] RBC 4.80 4.50 - 5.50 M/mcL LAB HEMETOLOGY METHOD 09/08/2025 2:37 PM [facility] Hemoglobin 14.8 13.5 - 17.5 g/dL LAB HEMETOLOGY METHOD 09/08/2025 2:37 PM [facility] Hematocrit 42.3 42.0 - 54.0 % LAB HEMETOLOGY METHOD 09/08/2025 2:37 PM [facility] MCV 88.7 79.0 - 98.0 FL LAB HEMETOLOGY METHOD 09/08/2025 2:37 PM [facility] MCH 31.0 27.0 - 32.0 pcg LAB HEMETOLOGY METHOD 09/08/2025 2:37 PM [facility] MCHC 35.0 32.0 - 37.0 g/dL LAB HEMETOLOGY METHOD 09/08/2025 2:37 PM [facility] RDW 12.7 11.0 - 15.0 % LAB HEMETOLOGY METHOD 09/08/2025 2:37 PM [facility] Platelets 174 130 - 400 K/mcL LAB HEMETOLOGY METHOD 09/08/2025 2:37 PM [facility] MPV 10.4 7.0 - 11.0 FL LAB HEMETOLOGY METHOD 09/08/2025 2:37 PM [facility] NRBC 0.0 <1.0 % LAB HEMETOLOGY METHOD 09/08/2025 2:37 PM [facility] NRBC Absolute 0.00 <0.10 K/mcL LAB HEMETOLOGY METHOD 09/08/2025 2:37 PM [facility] Neutrophils Relative 74.6 % LAB HEMETOLOGY METHOD 09/08/2025 2:37 PM [facility] Lymphocytes Relative 18.4 % LAB HEMETOLOGY METHOD 09/08/2025 2:37 PM [facility] Monocytes Relative 5.6 % LAB HEMETOLOGY METHOD 09/08/2025 2:37 PM [facility] Eosinophils Relative 0.7 % LAB HEMETOLOGY METHOD 09/08/2025 2:37 PM [facility] Basophils Relative 0.3 % LAB HEMETOLOGY METHOD 09/08/2025 2:37 PM [facility] Immature Granulocytes Relative 0.4 % LAB HEMETOLOGY METHOD 09/08/2025 2:37 PM EST [facility] Neutrophils Absolute 11.39(H) 1.50 - 7.00 K/mcL LAB HEMETOLOGY METHOD 09/08/2025 2:37 PM EST [facility] Lymphocytes Absolute 2.81 1.00 - 5.00 K/mcL LAB HEMETOLOGY METHOD 09/08/2025 2:37 PM EST [facility] Monocytes Absolute 0.85 0.20 - 1.00 K/[facility] LAB HEMETOLOGY METHOD 09/08/2025 2:37 PM EST [facility] Eosinophils Absolute 0.10 0.00 - 0.50 K/[facility] LAB HEMETOLOGY METHOD 09/08/2025 2:37 PM EST [facility] Basophils Absolute 0.04 0.00 - 0.20 K/mcL LAB HEMETOLOGY METHOD 09/08/2025 2:37 PM EST [facility] Immature Granulocytes Absolute 0.06(H) 0.00 - 0.03 K/[facility] LAB HEMETOLOGY METHOD 09/08/2025 2:37 PM EST [facility] Blood Venous blood specimen / Unknown Venipuncture / Unknown 09/08/2025 12:38 PM EST 09/08/2025 12:38 PM EST us Mikal DIAZ LAB BLOOD ORDERABLES Fin al Result [facility] [address] [place] [address], * Thyroid stimulating hormone (09/08/2025 12:38 PM EST) TSH 2.40 0.40 - 4.00 mcIU/mL 09/08/2025 4:55 PM EST [facility] Blood Venous blood specimen / Unknown Venipuncture / Unknown 09/08/2025 12:38 PM EST 09/08/2025 12:38 PM EST us Ziyad Tatum MD LAB BLOOD ORDERABLES Final Resu lt [facility] [address] [place] [address], * (ABNORMAL) Comprehensive metabolic panel (09/08/2025 12:38 PM EST) Sodium 129(L) 133 - 145 mmol/L 09/08/2025 5:03 PM [facility] Potassium 3.5 3.5 - 5.5 mmol/L 09/08/2025 5:03 PM [facility] Chloride 92(L) 96 - 110 mmol/L 09/08/2025 5:03 PM [facility] CO2 21 21 - 32 mmol/L 09/08/2025 5:03 PM [facility] Anion Gap 16(H) 3 - 11 09/08/2025 5:03 PM [facility] Glucose 275(H) 70 - 100 mg/dL 09/08/2025 5:03 PM [facility] BUN 8 5 - 25 mg/dL 09/08/2025 5:03 PM [facility] Creatinine 0.97 0.70 - 1.30 mg/dL 09/08/2025 5:03 PM [facility] eGFR 93 >=60 mL/min/1. 73m2 09/08/2025 5:03 PM [facility] Comment:Calculation based on the Chronic Kidney Disease Epidemiology Collaboration (CKD-EPI) equation refit without adjustment for race. BUN/Creatinine Ratio 8.2 09/08/2025 5:03 PM [facility] Calcium 8.5 8.5 - 10.5 mg/dL 09/08/2025 5:03 PM [facility] AST (SGOT) 132(H) 10 - 42 unit/L 09/08/2025 5:03 PM [facility] ALT (SGPT) 208(H) 10 - 60 unit/L 09/08/2025 5:03 PM [facility] Alkaline Phosphatase 232(H) 42 - 121 unit/L 09/08/2025 5:03 PM [facility] Total Protein 7.4 6.0 - 8.0 g/dL 09/08/2025 5:03 PM [facility] Albumin 4.1 3.2 - 5.0 g/dL 09/08/2025 5:03 PM [facility] Total Bilirubin 1.3 0.0 - 1.4 mg/dL 09/08/2025 5:03 PM [facility] Blood Venous blood specimen / Unknown Venipuncture / Unknown 09/08/2025 12:38 PM EST 09/08/2025 12:38 PM EST us Mikal DIAZ LAB BLOOD ORDERABLES Fin al Result Performing Organization Address City/State/[facility] Co de Phone Number [facility] [address] [place] [address], documented in this encounter Visit Diagnoses Diagnosis Rhonchi at right lung base Acute cough Sinus pressure Other diseases of nasal cavity and sinuses Pre-op examination History of partial thyroidectomy Other postprocedural status documented in this encounter Additional Health Concerns Assessment Noted Time PHQ-9 Depression Total Score: 0 05/06/20 25 10:18 AM EDT documented as of this encounter Care Teams Platform Operations Director Relationship Specialty Start Date End Date Tommie Dunn PA [address] [place] [id number] PCP - General Internal Medicine 01/05/21 documented as of this encounter
[2025-09-08 18:03] VITALS: BP 106/59; PULSE 108; RESP 18; TEMP 36.6; O2SAT 97; BMI 32.1
--- NOTE | 2025-09-08 18:04 | ECG_ITS ---
Test Reason : TACHY Blood Pressure : */* mmHG Vent. Rate : 100 BPM Atrial Rate : 100 BPM P-R Int : 162 ms QRS Dur : 96 ms QT Int : 356 ms P-R-T Axes : 50 -33 70 degrees QTcB Int : 459 ms Normal sinus rhythm Possible Left atrial enlargement Left axis deviation Left ventricular hypertrophy ( R in aVL , [place] product ) Anterolateral infarct , age undetermined Abnormal ECG No previous ECGs available Referred By: Judy Romano Electronically Signed By: JORGE HEART MD
--- NOTE | 2025-09-08 18:06 | ED.GENADULT ---
HPI - General Adult General Chief complaint: Recheck/Abnormal Lab/Rx Stated complaint: IV antibiotics Time Seen by Provider: 09/08/25 18:15 History of Present Illness ED Provider: breanna HPI narrative: 55 M sent for high glucose and URI symptoms. Outpatient x-ray done I am not able to review this patient says his primary provider just prior to arrival prescribed him antibiotics of which he took the 1st 2 doses. Based on his description it sounds possibly like a cephalosporin or penicillin plus azithromycin but he does not have these medications with him. He himself is feeling well unsure why his doctor sent him here other than that doctor was ?concerned about dehydration ?. The patient does drink daily but has no withdrawal symptomatology at this time and does not requests detox services Related Data Previous Rx's ?Medication ?Instructions ?Recorded cyclobenzaprine 5 mg tablet 5 mg PO TID PRN muscle spasm 7 12/14/24 days #21 tabs prednisone 20 mg tablet 20 mg PO DAILY 7 days #7 tabs 12/14/24 Allergies Allergy/AdvReac Type Severity Reaction Status Date / Time No Known Allergies Allergy Verified 09/08/25 18:04 Physical Exam ED Exam Exam: Medical Decision Making: [ ] Preliminary Favored Differential Diagnosis: [ ] among additional considered etiologies Testing Interpreted Independently: ?See below for details Radiology or Lab testing Results Reviewed: ?See below for details Consults: ?See below for details Independent Historians/External Chart Reviews: ?See below for details Social Determinants of Health Impacting MDM/Planning: ?See below for details Vital Signs: Vital Signs - 24 hr 09/08/25 18:03 09/08/25 18:29 09/08/25 18:50 Temperature 97.9 F Pulse Rate 108 H 95 Respiratory Rate 18 14 Blood Pressure 106/59 L 82/55 L 100/68 Pulse Oximetry 97 93 Oxygen Delivery Method Room Air Room Air 09/08/25 20:46 Temperature 98.3 F Pulse Rate 74 Respiratory Rate 18 Blood Pressure 100/68 Pulse Oximetry Oxygen Delivery Method Room Air BMI result Body Mass Index 32.1 Const Other: EXAM: Gen: Alert, awake, well appearing, well hydrated. Head: Atraumatic Eyes: Anicteric, Normal conjunctiva. ENT: Moist mucosa, no pallor. ? Neck: Supple. Skin: ?No observable rash or bruising on exposed or examined skin Respiratory: Breathing comfortably, No distress.Clear to auscultation bilaterally, symmetric chest expansion, No wheeze, rales, ronchi. Cardiovascular: Regular rate and rhythm. No murmurs or rub. Well perfused periphery, warm extremities. No edema. ? Abdominal: No focal tenderness. Soft, no objective distension. No palpable masses or obvious organomegaly. ?No guarding, no rebound tenderness or other peritoneal findings. : No flank tenderness. Neuro: Alert. Gross movement of all extremities intact. ? Psych: Calm. Cooperative. MSK: No grossly visible deformity. Vital signs: See flowsheet Course Course Course Narrative: This is an RME: Additional HPI, ROS, PE not included below will be deferred to primary provider. RME assessment and note performed by: Judy Romano PA-C This is a 55-year-old male, with no reported past medical history however does report that he was told he had to be put on a medication to help control his sugar 1 year ago however he has not been taking this medication, who presents emergency department with concerns of cough, shortness for breath. Chest x-ray at an urgent care this afternoon showed concern for pneumonia however the doctor's office sent him in as there was concern for DKA as he had blood work done. Plan: Labs, EKG, POC, further ER eval needed Medications Administered Discontinued Medications Generic Name Dose Route Start Last Admin Trade Name Freq PRN Reason Stop Dose Admin Sodium Chloride 1,000 mls @ 999 mls/hr 09/08/25 19:30 09/08/25 20:55 Ns IV 09/08/25 20:30 Infused .Q1H1M CASSI Infusion Insulin Human Regular 5 unit 09/08/25 19:20 09/08/25 19:33 Insulin Regular, Human 100 Unit/Ml 10 Ml Vial IVPUSH 09/08/25 19:21 5 unit ONCE ONE Administration Medical Decision Making Medical Decision Making MDM Narrative: Medical Decision Makin-year-old male with diabetes on oral hypoglycemics only with URI symptoms mild dry cough no fever no shaking chills no respiratory distress or dyspnea possibly outpatient x-ray with pneumonia findings 1st dose of antibiotics taken. Here the patient is awake alert oriented looks well does not have any acute toxidrome or withdrawal syndrome. No requests given for detox. Sounds like he has daily drinking and decompensated type 2 diabetes. Blood sugar in the 500s but no DKA. Does not appear dehydrated fact he looks euvolemic to me. The patient will be hydrated, insulin and rechecked glucose increase metformin outpatient. Regarding respiratory symptoms they are quite mild and explained by positive COVID-19 test. X-ray here without infiltrate I have advised him to not continue with taking the antibiotics that were previous described as this is likely viral process. No indication for admission, steroid or other advanced COVID-19 therapies he is not vaccinated this is season against COVID-19 or flu Preliminary Favored Differential Diagnosis: Viral syndrome, bronchitis, COPD, pneumonia, diabetes, dehydration, DKA, HHS among additional considered etiologies Testing Interpreted Independently: ?Sinus rhythm left bundle-branch block no comparison. No acute ischemic changes or Sgarbossa criteria Radiology or Lab testing Results Reviewed: ?Negative for infiltrate Consults: ?See below for details Independent Historians/External Chart Reviews: ?See below for details Social Determinants of Health Impacting MDM/Planning: ?See below for details Lab Data 09/08/25 18:28 09/08/25 18:28 Labs: Lab Results 09/08/25 09/08/25 09/08/25 Range/Units 18:19 18:28 18:34 WBC 14.1 H (4.8-10.8) X10*3/uL RBC 4.49 L (4.60-5.80) X10*6/uL Hgb 14.1 (14.0-18.0) g/dl Hct 39.1 L (42.0-52.0) % MCV 87.1 (80.0-98.0) fL MCH 31.4 (27.0-33.0) pg MCHC 36.1 H (31.0-36.0) g/dl RDW 12.8 (11.0-16.0) % Plt Count 148 L D (160-400) X10*3/uL MPV 10.4 (9.4-12.4) fL Immature Gran % (Auto) 0.3 (0.0-0.4) % Neut % (Auto) 73.3 H (45-73) % Lymph % (Auto) 19.7 L (20-40) % Ida % (Auto) 6.0 (2-11) % Eos % (Auto) 0.5 (0-4) % Baso % (Auto) 0.2 (0-2) % Lymph # (Auto) 2.8 (1.2-4.9) X10*3/uL Ida # (Auto) 0.9 (0.1-1.2) X10*3/uL Eos # (Auto) 0.1 (0.0-0.4) X10*3/uL Baso # (Auto) 0.0 (0.0-0.2) X10*3/uL Abs Immat Gran (auto) 0.04 H (0.00-0.03) X10*3/uL Absolute Neuts (auto) 10.3 H (2.0-8.3) x10*3/uL Absolute Nucleated RBC 0.000 (0.0-0.012) X10*3/uL Nucleated RBC % (auto) 0.0 (0.0-0.2) /100WBC VBG pH 7.52 H (7.32-7.43) VBG pCO2 25 mmHg VBG pO2 77 mmHg VBG HCO3 21 L (22-26) mmol/L VBG O2 Saturation 98.0 % VBG Base Excess 0.0 mmol/L Sodium 131 L (135-145) mmol/L Potassium 3.6 (3.3-5.1) mmol/L Chloride 98 (96-108) mmol/L Carbon Dioxide 20 L (22-29) mmol/L Anion Gap 17 (12-20) BUN 11 (9-16) mg/dL Creatinine 1.17 (0.5-1.4) mg/dL Estim Creat Clear Calc 89.7 Estimated GFR > 60 POC Glucose 375 H* (60-115) mg/dL Random Glucose 380 H* (60-115) mg/dL Lactic Acid 1.6 (0.5-2.0) mmol/L Calcium 9.1 D (8.4-10.2) mg/dL Magnesium 1.6 (1.6-2.6) mg/dL Total Bilirubin 1.3 H (0.0-1.0) mg/dL Direct Bilirubin 0.5 (0.0-0.5) mg/dL AST 105 H (5-37) U/L ALT 175 H (0-40) U/L Alkaline Phosphatase 183 H (39-117) U/L Troponin I High Sens 36.2 H (<3.5-35.0) ng/L Total Protein 7.6 (6.5-8.0) g/dL Albumin 3.8 (3.5-5.0) g/dL Beta-Hydroxybutyrate 0.22 (0.02-0.27) mmol/L Influenza Type A (PCR) (Negative) Influenza Type B (PCR) (Negative) RSV RNA Qual (PCR) (Negative) SARS-CoV-2 RNA (RT-PCR) (Negative) 09/08/25 09/08/25 Range/Units 18:37 20:45 WBC (4.8-10.8) X10*3/uL RBC (4.60-5.80) X10*6/uL Hgb (14.0-18.0) g/dl Hct (42.0-52.0) % MCV (80.0-98.0) fL MCH (27.0-33.0) pg MCHC (31.0-36.0) g/dl RDW (11.0-16.0) % Plt Count (160-400) X10*3/uL MPV (9.4-12.4) fL Immature Gran % (Auto) (0.0-0.4) % Neut % (Auto) (45-73) % Lymph % (Auto) (20-40) % Ida % (Auto) (2-11) % Eos % (Auto) (0-4) % Baso % (Auto) (0-2) % Lymph # (Auto) (1.2-4.9) X10*3/uL Ida # (Auto) (0.1-1.2) X10*3/uL Eos # (Auto) (0.0-0.4) X10*3/uL Baso # (Auto) (0.0-0.2) X10*3/uL Abs Immat Gran (auto) (0.00-0.03) X10*3/uL Absolute Neuts (auto) (2.0-8.3) x10*3/uL Absolute Nucleated RBC (0.0-0.012) X10*3/uL Nucleated RBC % (auto) (0.0-0.2) /100WBC VBG pH (7.32-7.43) VBG pCO2 mmHg VBG pO2 mmHg VBG HCO3 (22-26) mmol/L VBG O2 Saturation % VBG Base Excess mmol/L Sodium (135-145) mmol/L Potassium (3.3-5.1) mmol/L Chloride (96-108) mmol/L Carbon Dioxide (22-29) mmol/L Anion Gap (12-20) BUN (9-16) mg/dL Creatinine (0.5-1.4) mg/dL Estim Creat Clear Calc Estimated GFR POC Glucose 252 H (60-115) mg/dL Random Glucose (60-115) mg/dL Lactic Acid (0.5-2.0) mmol/L Calcium (8.4-10.2) mg/dL Magnesium (1.6-2.6) mg/dL Total Bilirubin (0.0-1.0) mg/dL Direct Bilirubin (0.0-0.5) mg/dL AST (5-37) U/L ALT (0-40) U/L Alkaline Phosphatase (39-117) U/L Troponin I High Sens (<3.5-35.0) ng/L Total Protein (6.5-8.0) g/dL Albumin (3.5-5.0) g/dL Beta-Hydroxybutyrate (0.02-0.27) mmol/L Influenza Type A (PCR) NEGATIVE (Negative) Influenza Type B (PCR) NEGATIVE (Negative) RSV RNA Qual (PCR) NEGATIVE (Negative) SARS-CoV-2 RNA (RT-PCR) POSITIVE A (Negative) Discharge Plan Discharge Clinical Impression: COVID-19, Poorly controlled diabetes mellitus Patient Disposition: Home, Self-Care Instructions: Diabetic Hyperglycemia (ED), Diabetes and Nutrition (ED), COVID-19 (Coronavirus Disease 2019) (ED) Additional Instructions: DISCHARGE DIAGNOSES: High blood sugar in the 300s. Poorly controlled Cough and upper respiratory infection symptoms, COVID-19 positive likely explain these symptoms HISTORY OF PRESENTATION: Cough high blood sugar in the office EMERGENCY DEPARTMENT COURSE,TESTS, TREATMENTS: While in the ED today you had a chest x-ray that did not show any signs of pneumonia. Blood work showed a high blood glucose 350 range no signs of DKA or severe diet dehydration you were hydrated you were given a small dose of insulin your blood sugar improved DISCHARGE MEDICATIONS: ?[We have made no changes to your regular medication regimen] we are increasing your blood pressure medicine to 1000 mg or 2 tablets of 500 mg metformin twice per day until instructed by your primary doctor FOLLOW-UP: ?Call your primary or general physician soon as possible to discuss your symptoms, your ED visit and to discuss follow up plans Call your PCP tomorrow to discuss our treatment changes including we advise you to not continue with the oral antibiotics that were prescribed today from primary doctor office INSTRUCTIONS ?& RETURN PRECAUTIONS: If any symptoms change first call your primary physician, if it is after-hours your primary doctors office should have a provider consumer affairs specialist you can speak with. If the symptoms are severe or very concerning to you then call 911 or return to the ED. Joshua Chin MD Emergency Physician [facility] Prescriptions: No Action prednisone 20 mg tablet 20 mg PO DAILY 7 Days Qty: 7 0RF cyclobenzaprine 5 mg tablet 5 mg PO TID PRN (Reason: muscle spasm) 7 Days Qty: 21 0RF Interventions: ED Discharge Assessment Last Done: 09/08/25 20:46 Discharge Date/Time: 09/08/25 21:04 Print Language: [place]
[2025-09-08 18:23] LABS: Glucose, Whole Blood 375 mg/dL (60-115)
[2025-09-08 18:29] VITALS: BP 82/55; PULSE 95; RESP 14; O2SAT 93
[2025-09-08 18:35] LABS: MANUAL DIFF FLAG NO
--- NOTE | 2025-09-08 18:36 | PC.NURSE ---
MD aware of low BP
--- NOTE | 2025-09-08 18:36 | PC.NURSE ---
Pt presents to ED after PCP told him to come in for abnormal labs, ?DKA and concerns of PNA. Cough and URI symptoms X4 days. Daily alcohol drinker 5-7 drinks of hard alcohol a day, no alcohol in 3 days, no hx of withdrawals. +cough. No hx of diabetes.
[2025-09-08 18:38] LABS: Hematocrit 39.1 % (42.0-52.0); Hemoglobin 14.1 g/dl (14.0-18.0); Imm Gran Abs Auto 0.04 X10*3/uL (0.00-0.03); Imm Gran Pct Auto 0.3 % (0.0-0.4); Lymphocytes Absolute Auto 2.8 X10*3/uL (1.2-4.9); Mean Corpuscular HGB Conc 36.1 g/dl (31.0-36.0); Mean Corpuscular Hemoglobin 31.4 pg (27.0-33.0); Mean Corpuscular Volume 87.1 fL (80.0-98.0); NRBC Abs Auto 0.000 X10*3/uL (0.0-0.012); NRBC Pct Auto 0.0 /100WBC (0.0-0.2); Platelet Count 148 X10*3/uL (160-400); Red Blood Count 4.49 X10*6/uL (4.60-5.80); White Blood Count 14.1 X10*3/uL (4.8-10.8)
[2025-09-08 18:42] LABS: VBG HCO3 21 mmol/L (22-26); VBG O2 % Saturation 98.0 %
[2025-09-08 18:42] LABS: Venous Blood Gas Refer to POC result
[2025-09-08 18:50] VITALS: BP 100/68
[2025-09-08 18:56] LABS: Troponin-I High Sensitivity 36.2 ng/L (<3.5-35.0)
[2025-09-08 19:07] LABS: Alanine Aminotransferase 175 U/L (0-40); Albumin Level 3.8 g/dL (3.5-5.0); Alkaline Phosphatase 183 U/L (39-117); Anion Gap 17 (12-20); Aspartate Amino Transferase 105 U/L (5-37); Blood Urea Nitrogen 11 mg/dL (9-16); Calcium 9.1 mg/dL (8.4-10.2); Carbon Dioxide 20 mmol/L (22-29); Chloride 98 mmol/L (96-108); Creatinine Clr Calc Pharmacy 89.7; Estimated Glomerular Filt Rate > 60; Magnesium 1.6 mg/dL (1.6-2.6); Potassium 3.6 mmol/L (3.3-5.1); Sodium 131 mmol/L (135-145); Total Protein 7.6 g/dL (6.5-8.0)
[2025-09-08 19:22] LABS: Resp Syncy Virus RNA Qual PCR NEGATIVE (Negative); SARS COV2 PCR INHOUSE POSITIVE (Negative)
[2025-09-08 20:46] VITALS: BP 100/68; PULSE 74; RESP 18; TEMP 36.8
[2025-09-08 20:48] LABS: Glucose, Whole Blood 252 mg/dL (60-115)
--- OUTSIDE RECORDS SUMMARY | 2025-09-09 00:58 | XMS_ITS | Encounter Summary ---
Author Organization [facility] [address] Care Team Providers Care Oracle Hrms Developer Name Role Phone Tommie Dunn Primary Care Provider [phone] Encounter Details Date Type Department Care Team (Late st Contact Info) Description 09/08/2025 Telephone Adult Medicine [facility] [address] [place], [place] [phone] Mikal Dangelo PA [address] [place], [place] Social History Tobacco Use Types Packs/Day Years [...] for your loved ones. For example, child & adolescent psychiatrist or elderly care for an older [...] on file documented as of this encounter Progress Notes * Rula Salhe RN - 09/08/2025 5:22 PM EST Noted, thank you. * JOE Jaime - 09/08/2025 5:21 PM EST Disregard he has dka I sent him to ed * Rula Saleh RN - 09/08/2025 5:15 PM EST Called pt sts Joe left jessica to return call * JOE Jaime - 09/08/2025 5:04 PM EST I was able to speak with him. I once again checked with him that he is not having any CP or dyspnea. He actually tells me that he is feeling better than he was this morning. I discussed with his WBC and elevated HR (SIRS Criteria) going to the ER for CT scan +/- IV abx is entirely reasonable, but on the other hand he feels well and looks well overall. He does not feel the need for ER Evaluation but he was agreeable to come to the office in 2 days for a recheck to ensure his vitals are improvingbefore the weekend. Triage team: He likely has a pneumonia the x-ray is missing and I have him on appropriate treatment. Can you call him tomorrow and make sure this patient gets a follow up in office with a provider onSaturday (or at the very least goes to urgent care/ER on Saturday for a recheck if we have no openings). * JOE Jaime - 09/08/2025 4:30 PM EST Reviewed normal x-ray. Also looked it at myself. Also considered PE once again, wells score quite low (1.5 points). He has leukocytosis. Technically meeting SIRS criteria, but I don't think he warrants ER referral unless his CMP is abnormal because he clinically looked quite well appearing. Call x 2 failed. Will try to reach pt to discuss. documented in this encounter Plan of Treatment Upcoming Encounters Date Type Department Care Team (Late st Contact Info) Description 09/27/2025 10:00 AM EST Consult Adult Medicine [address] [phone] Tommie Dunn PA [address] [place] [phone] 10/13/2025 3:30 PM EST Office Visit Adult Medicine [address] [phone] Tommie Dunn PA [address] [place] [phone] 11/02/2025 10:30 AM EST Consult Gastroenterology - [address] [phone] Laura Melvin PA [address] [id number] documented as of this encounter Visit Diagnoses Not on filedocumented in this encounter Additional Health Concerns Assessment Noted Time PHQ-9 Depression Total Score: 0 05/06/20 25 10:18 AM EDT documented as of this encounter Care Teams Oracle Hrms Developer Relationship Specialty Start Date End Date Tommie Dunn PA [address] [place] [address] PCP - General Internal Medicine 01/05/21 documented as of this encounter
--- OUTSIDE RECORDS SUMMARY | 2025-09-09 00:58 | XMS_ITS | Clinical Summary ---
Author Organization [facility] Address [address] [place] [address] Care Team Providers Care Locomotive Driver Name Role Phone Unavailable Primary Care Provider Unavailabl e Immunizations Immunization Administration Dates Next Due Influenza, trivalent (IIV3), split virus (single-dose) PF 07/11/2020 Social History Tobacco Use Types Packs/Day Years Used Date Smoking Tobacco: Never Assessed Sex and Gender Information Value Date Recorded Sex Assigned at Not on file Legal Sex Male 12:05 PM MST Gender Identity Not on file Sexual Orientation Not on file Plan of Treatment Health Maintenance Due Date Last Done Comments CT Colonography 1972 Cologuard 1972 Colonoscopy 1972 Colorectal Cancer Screening 1972 FOBT/FIT 1972 Hepatitis C Screening 1972 Sigmoidoscopy 1972 MMR Vaccines (1 of 1 - Standard series) 01/25/1973 PHQ-9 Depression Screen 1984 Annual Preventive Exam 01/25/1990 Complete Annual HRA 01/25/1990 MICHELLE-7 Anxiety Screen 01/25/1990 DTaP,Tdap,and Td Vaccines (1 - Tdap) 01/25/1991 Hepatitis B Vaccines (1 of 3 - 19+ 3-dose series) 12/30 Pneumococcal Vaccine: 50+ Years (1 of 1 - PCV) 022 Zoster Vaccines (1 of 2) 01/25/2022 COVID-19 Vaccine (1 - 2023-25 season) 2025 Influenza Vaccine (#1) 2025 07/11/2020 RSV Vaccine (SCDM) (1 - 1-dose 75+ series) 01/25/2047 Insurance [employer]
--- OUTSIDE RECORDS SUMMARY | 2025-09-09 00:58 | XMS_ITS ---
Author Name [facility] Organization Unknown Care Team Organization Name Specialty Phone Email Start Date End Da te [facility] Tommie Dunn Primary Care 06/06/2023 [facility] Merari Chatterjee Primary Care 12/05/2022 05/18/20 24 [facility] Gabi Cruz Primary Care 08/07/2022 024
--- OUTSIDE RECORDS SUMMARY | 2025-09-09 00:58 | XMS_ITS | Clinical Summary ---
Author Organization [facility] Address [address] [place] [phone] Phone Care Team Providers Care Brain Surgeon Name Role Phone Tommie Dunn Primary Care Provider [phone] Allergies No known active allergies Medications aspirin 81 mg EC tablet Take 1 Tab by mouth daily. 3 Active fluticasone propionate (FLONASE) 50 mcg/actuation nasal spray 2 Sprays by Each Nare route daily. 4 Active blood-glucose meter misc 4 Active FREESTYLE LANCETS MISC Use to check blood sugar once daily 4 Active blood sugar diagnostic (FreeStyle Lite Strips) test strip Use to check blood sugar once daily 4 Active OMEPRAZOLE MAGNESIUM ORAL Take by mouth as needed. Active hydrOXYzine HCL (ATARAX) 25 mg tablet TAKE 1 TABLET BY MOUTH ONCE DAILY NEEDED FOR ITCHING. 90 tablet 3 5 Active allopurinoL (ZYLOPRIM) 100 mg tablet TAKE 1 TABLET BY MOUTH DAILY. TAKE IN ADDITION TO A 300 MG TAB, TOTAL 400 MG DAILY 90 tablet 1 5 Active amLODIPine (NORVASC) 10 mg tablet TAKE 1 TABLET BY MOUTH EVERY DAY 90 tablet 1 5 Active oxyCODONE (ROXYBOND) 5 mg immediate release abuse-deterrent tablet Take 1 tablet (5 mg total) by mouth every 6 (six) hours if needed for severe pain. Max Daily Amount: 20 mg 12 tablet 5 Active atorvastatin (LIPITOR) 40 mg tablet Take 1 tablet (40 mg total) by mouth 1 (one) time each day. 90 each 3 5 Active metoprolol succinate (TOPROL-XL) 100 mg 24 hr tablet Take 1 tablet (100 mg total) by mouth 1 (one) time each day. 90 tablet 3 5 Active traZODone (DESYREL) 50 mg tablet TAKE 1 TO 3 TABLET BY MOUTH AT BEDTIME NEEDED FOR SLEEP 270 tablet 1 5 Active metFORMIN (GLUCOPHAGE) 500 mg tablet TAKE 1 TABLET BY MOUTH TWICE A DAY WITH MEALS 180 tablet 1 5 Active lisinopriL (PRINIVIL,ZESTR IL) 10 mg tablet TAKE 1 TABLET BY MOUTH EVERY DAY 90 tablet 1 5 Active allopurinoL (ZYLOPRIM) 300 mg tablet TAKE 1 TABLET BY MOUTH DAILY. TAKE IN ADDITION TO A 100 MG TAB, TOTAL 400 MG DAILY 90 tablet 1 5 Active amoxicillin-cla vulanate (AUGMENTIN) 875-125 mg per tablet Take 1 tablet by mouth 2 (two) times a day for 7 days. 14 each 5 09/15/20 25 Active doxycycline (VIBRAMYCIN) 100 mg capsule Take 1 capsule (100 mg total) by mouth 2 (two) times a day for 7 days. Take with at least 8 ounces (large glass) of water, do not lie down for 30 minutes after. Administer 2 hours before or after multivitamins, antacids, or other products containing polyvalent cations (i.e., calcium, iron, magnesium, selenium, zinc). 14 each 5 09/15/20 25 Active Active Problems Problem Noted Date Diagnosed Date Right thyroid nodule 04/30/2025 Class 1 obesity 09/04/2024 Type 2 diabetes mellitus wit hout complication, without long-term current use of insulin 05/26/2024 Obstructive sleep apnea 08/12/2017 Overview (09/04/2024): [facility] Home Polysomnogram: Date 08/08/2017; AHI 5, Unclassified apneas 0; Obstructive apneas 17; Central apneas 1; Mixed apneas 0; hypopneas 21; average oxygen saturation 97% (lowest 87% without saturations <88% for 5% or more of study) Bicuspid aortic valve 10/17/2016 Obesity 07/15/2014 Dilated aortic root 06/25/2014 Dyslipidemia 12/29/2012 HTN (hypertension) 12/29/2012 Elevated LFTs 12/13/2011 Old [place] (myocardial infarction) 07/16/2008 Overview (09/04/2024): 03/[address] elev mi Ef 60% Lad stented Tobacco use disorder 06/04/2006 Gout, unspecified 11/24/2005 Sprain of acromioclavicular ligament 11/24/2005 Overview (09/04/2024): IMO update Encounters Date Type Department Care Team Description 09/08/2025 12:10 PM EST Lab Draw Station [address] Rhonchi at right lung base; Acute cough; Sinus pressure; Pre-op examination; History of partial thyroidectomy 09/08/2025 11:57 AM EST Hospital Encounter XRAY - [address] [phone] Rhonchi at right lung base; Acute cough; Sinus pressure 09/08/2025 11:30 AM EST Office Visit Adult [address] [phone] Mikal Dangelo PA Rhonchi at right lung base (Primary Dx); Acute cough; Sinus pressure 09/08/2025 Telephone Adult Medicine [address] [phone] Mikal Dangelo PA 09/08/2025 Results Follow-Up Adult [address] [phone] Mikal Dangelo PA from Last 3 Months Surgical History Surgery Date Site/Laterality Comments COLONOSCOPY W/ BIOPSIES 10/24/15 [facility] PROCEDURE: [place] COLONOSCOPY W/BIOPSY SINGLE/MULTIPLE; COMMENT: hyperplastic polyps and hemorrhoids; repeat in 10 yrs under propofol OTHER SURGICAL HISTORY ROTATOR CUFF REPAIR BICEPS TENDON REPAIR Medical History Medical History Date Comments Gout, unspecified DX:Gout, unspe cified Acromioclavicular (joint) (l igament) sprain DX:Acromioclavicular (joint) (ligament) sprain Tobacco use disorder 06/04/2006 DX:Tobacco use disorder CAD (coronary artery disease) 07/16/2008 DX :CAD (coronary artery disease); COMMENT: 03/[address] elev mi Ef 60% Lad stented Hypertension Heart disease cardiacstent [facility] ed Myocardial infarction ([facility] V24, [facility] V28) Diabetes mellitus ([facility] V 24, [facility] V28) Gout Chronic pain disorder Neuromuscular disorder ([facility] V24, [facility] V28) Arthritis Joint pain Cancer ([facility] V24, [facility] V28) hyroid Sleep apnea Family History Relation Name Status Comments Brother 1 Alive Brother 2 Alive Father dm heart htn ch olesterol Mother Alive dm Sister Alive dm Social History Tobacco Use Types Packs/Day Years [...] care for your loved ones. For example, childrens club attendant or elderly care for an older adult? [...] on file Sexual Orientation Not on file Last Filed Vital Signs Vital Sign Reading [...] Mass Index 31.94 09/08/2025 11:40 AM EST Plan of Treatment Upcoming Encounters Date Type Department Care Team (Late st Contact Info) Description 09/27/2025 10:00 AM EST Consult Adult Medicine [address] [phone] Tommie Dunn, PA [address] [place] [phone] 10/13/2025 3:30 PM EST Office Visit Adult Medicine [address] [phone] Tommie Dunn, PA [address] [place] [phone] 11/02/2025 10:30 AM EST Consult Gastroenterology - [address] [phone] Laura Melvin PA [address] [phone] Health Maintenance Due Date Last Done Comments Diabetes: Annual Foot Exam 01/25/1982 Diabetes: Annual Retina Eye Exam 01/25/1982 Hepatitis A Vaccines (1 of 2 - Risk 2-dose series) 01/25/1991 Hepatitis B Vaccines (1 of 3 - 19+ 3-dose series) 01/25/1991 Pneumococcal Vaccine: 50+ Years (1 of 2 - PCV) 01/25/1991 COVID-19 Vaccine (3 - season) 2025 03/30/2021, 03/09/2021 Influenza Vaccine (#1) 2025 , 07/11/2020, 08/06/2018, Additional history exists Colorectal Cancer Screening: Colonoscopy 10/24/2025 10/24/2015 Diabetes: Blood Sugar Control Test (HGBA1C) 11/06/2025 05/06/2025, 01/20/2025, 05/25/2024, Additional history exists Diabetes: Annual Urine Albumin-Creatinine Ratio (uACR) 05/06/2026 05/06/2025, 01/20/2025 Social Influencers of Health Screening 05/06/2026 05/06/2025 Diabetes: Annual GFR (Glomerular Filtration Rate) 09/08/2026 09/08/2025, 05/06/2025, 01/20/2025, Additional history exists Hypertension/CHF/CAD Annual BMP Blood Test 09/08/2026 09/08/2025, 05/06/2025, 01/20/2025, Additional history exists Cholesterol Screening (Lipid Panel) 05/06/2030 05/06/2025, 05/06/2025, 01/20/2025, Additional history exists DTaP,Tdap,and Td Vaccines (3 - Td or Tdap) 03/14/2031 03/14/2021, 10/17/2010 RSV Immunization Adult Patients (1 - 1-dose 75+ series) 01/25/2047 HIV Screening Completed 08/14/2004 Hepatitis C Screening Completed 03/16/2021 Zoster Vaccines Completed 05/12/2023, 02/26/2023 Depression Screening Completed 05/06/2025 HIB Vaccines Aged Out No longer eligi ble based on patient's age to complete this topic HPV Vaccines Aged Out No longer eligi ble based on patient's age to complete this topic IPV Vaccines Aged Out No longer eligi ble based on patient's age to complete this topic MMR Vaccines Aged Out No longer eligi ble based on patient's age to complete this topic Meningococcal ACWY Vaccine Aged Out N o longer eligible based on patient's age to complete this topic Meningococcal B Vaccine Aged Out No l onger eligible based on patient's age to complete this topic RSV Immunization Patients Under 20 months Aged Out No longer eligible based on patient's age to complete this topic Varicella Vaccines Aged Out No longer eligible based on patient's age to complete this topic Medical Devices Implanted Type Area Architectural Job Captain Device Identifier Shelf Expiration Date Model / Serial / Lot Hemostat Flour Collgn [facility]gm [facility] - [id number] Implanted:Qty: 1 on 05/20/2025 by Ziyad Tatum MD at [facility] Hemostasis Right: Thyroid CR BARD - [employer]OL DIV [id number] 12/26/2027 [id number] / NA / [id number] Procedures Procedure Name Priority Date/Time Associated Diagnosis Comments CBC WITH AUTO DIFFERENTIAL Routine 09/08/2025 12:38 PM EST Rhonchi at right lung base Acute cough Sinus pressure THYROID STIMULATING HORMONE Routine 09/08/2025 12:38 PM EST History of partial thyroidectomy CBC AND DIFFERENTIAL Routine 09/08/2025 12:38 PM EST Rhonchi at right lung base Acute cough Sinus pressure COMPREHENSIVE METABOLIC PANEL Routine 09/08/2025 12:38 PM EST Rhonchi at right lung base Acute cough Sinus pressure XR CHEST 2 VIEWS Routine 09/08/2025 12:0 5 PM EST Rhonchi at right lung base Acute cough Sinus pressure MICROALBUMIN CREATININE URINE RATIO Routine 05/06/2025 11:07 AM EDT Pre-op exam Dilated aortic root (CMS/HCC V24) Bicuspid aortic valve Dyslipidemia Primary hypertension Tobacco use disorder Obstructive sleep apnea Type 2 diabetes mellitus without complication, without long-term current use of insulin (CMS/HCC V24, CMS/HCC V28) HEMOGLOBIN A1C Routine 05/06/2025 11:07 AM EDT Pre-op exam Dilated aortic root (CMS/HCC V24) Bicuspid aortic valve Dyslipidemia Primary hypertension Tobacco use disorder Obstructive sleep apnea Type 2 diabetes mellitus without complication, without long-term current use of insulin (CMS/HCC V24, CMS/HCC V28) LDL CHOLESTEROL, DIRECT Routine 05/06/2025 11:07 AM EDT Pre-op exam Dilated aortic root (CMS/HCC V24) Bicuspid aortic valve Dyslipidemia Primary hypertension Tobacco use disorder Obstructive sleep apnea Type 2 diabetes mellitus without complication, without long-term current use of insulin (CMS/HCC V24, CMS/HCC V28) HEPATITIS C SCREENING Routine 03/16/2021 HM COLONOSCOPY Routine 10/24/2015 HIV SCREENING Routine 08/14/2004 from Last 3 Months or Most Recently Relevant to Health Maintenance Results * (ABNORMAL) CBC auto differential (09/08/2025 12:38 PM EST) [facility] WBC 15.3(H) 4.8 - 10.8 K/mcL LAB HEMETOLOGY METHOD 09/08/2025 2:37 PM [facility] RBC 4.80 4.50 - 5.50 M/mcL LAB HEMETOLOGY METHOD 09/08/2025 2:37 PM [facility] Hemoglobin 14.8 13.5 - 17.5 g/dL LAB HEMETOLOGY METHOD 09/08/2025 2:37 PM [facility] Hematocrit 42.3 42.0 - 54.0 % LAB HEMETOLOGY METHOD 09/08/2025 2:37 PM [facility] MCV 88.7 79.0 - 98.0 FL LAB HEMETOLOGY METHOD 09/08/2025 2:37 PM [facility] MCH 31.0 27.0 - 32.0 pcg LAB HEMETOLOGY METHOD 09/08/2025 2:37 PM [facility] MCHC 35.0 32.0 - 37.0 g/dL LAB HEMETOLOGY METHOD 09/08/2025 2:37 PM [facility] RDW 12.7 11.0 - 15.0 % LAB HEMETOLOGY METHOD 09/08/2025 2:37 PM [facility] Platelets 174 130 - 400 K/[facility] LAB HEMETOLOGY METHOD 09/08/2025 2:37 PM [facility] MPV 10.4 7.0 - 11.0 FL LAB HEMETOLOGY METHOD 09/08/2025 2:37 PM [facility] NRBC 0.0 <1.0 % LAB HEMETOLOGY METHOD 09/08/2025 2:37 PM [facility] NRBC Absolute 0.00 <0.10 K/mcL LAB HEMETOLOGY METHOD 09/08/2025 2:37 PM [facility] Neutrophils Relative 74.6 % LAB HEMETOLOGY METHOD 09/08/2025 2:37 PM [facility] Lymphocytes Relative 18.4 % LAB HEMETOLOGY METHOD 09/08/2025 2:37 PM [facility] Monocytes Relative 5.6 % LAB HEMETOLOGY METHOD 09/08/2025 2:37 PM [facility] Eosinophils Relative 0.7 % LAB HEMETOLOGY METHOD 09/08/2025 2:37 PM [facility] Basophils Relative 0.3 % LAB HEMETOLOGY METHOD 09/08/2025 2:37 PM [facility] Immature Granulocytes Relative 0.4 % LAB HEMETOLOGY METHOD 09/08/2025 2:37 PM [facility] Neutrophils Absolute 11.39(H) 1.50 - 7.00 K/mcL LAB HEMETOLOGY METHOD 09/08/2025 2:37 PM [facility] Lymphocytes Absolute 2.81 1.00 - 5.00 K/mcL LAB HEMETOLOGY METHOD 09/08/2025 2:37 PM [facility] Monocytes Absolute 0.85 0.20 - 1.00 K/mcL LAB HEMETOLOGY METHOD 09/08/2025 2:37 PM [facility] Eosinophils Absolute 0.10 0.00 - 0.50 K/mcL LAB HEMETOLOGY METHOD 09/08/2025 2:37 PM [facility] Basophils Absolute 0.04 0.00 - 0.20 K/mcL LAB HEMETOLOGY METHOD 09/08/2025 2:37 PM [facility] Immature Granulocytes Absolute 0.06(H) 0.00 - 0.03 K/mcL LAB HEMETOLOGY METHOD 09/08/2025 2:37 PM [facility] Blood Venous blood specimen / Unknown Venipuncture / Unknown 09/08/2025 12:38 PM EST 09/08/2025 12:38 PM EST Mikal DIAZ LAB BLOOD ORDERABLES Fin al Result [facility] [address] [place] [address], [place] [phone] * Thyroid stimulating hormone (09/08/2025 12:38 PM EST) [facility] TSH 2.40 0.40 - 4.00 mcIU/mL 09/08/2025 4:55 PM [facility] Blood Venous blood specimen / Unknown Venipuncture / Unknown 09/08/2025 12:38 PM EST 09/08/2025 12:38 PM EST Ziyad Tatum MD LAB BLOOD ORDERABLES Final Resu lt Performing Organization Address City/[facility]/ZIP Co de Phone Number [facility] [address] [place] [address], [place] [phone] * (ABNORMAL) Comprehensive metabolic panel (09/08/2025 12:38 PM EST) [facility] Sodium 129(L) 133 - 145 mmol/L 09/08/2025 5:03 PM [facility] Potassium 3.5 3.5 - 5.5 mmol/L 09/08/2025 5:03 PM [facility] Chloride 92(L) 96 - 110 mmol/L 09/08/2025 5:03 PM [facility] CO2 21 21 - 32 mmol/L 09/08/2025 5:03 PM [facility] Anion Gap 16(H) 3 - 11 09/08/2025 5:03 PM [facility] Glucose 275(H) 70 - 100 mg/dL 09/08/2025 5:03 PM [facility] BUN 8 5 - 25 mg/dL 09/08/2025 5:03 PM [facility] Creatinine 0.97 0.70 - 1.30 mg/dL 09/08/2025 5:03 PM [facility] eGFR 93 >=60 mL/min/1. 73m2 09/08/2025 5:03 PM [facility] Comment:Calculation based on the Chronic Kidney Disease Epidemiology Collaboration (CKD-EPI) equation refit without adjustment for race. BUN/Creatinine Ratio 8.2 09/08/2025 5:03 PM [facility] Calcium 8.5 8.5 - 10.5 mg/dL 09/08/2025 5:03 PM [facility] AST (SGOT) 132(H) 10 - 42 unit/L 09/08/2025 5:03 PM [facility] ALT (SGPT) 208(H) 10 - 60 unit/L 09/08/2025 5:03 PM [facility] Alkaline Phosphatase 232(H) 42 - 121 unit/L 09/08/2025 5:03 PM [facility] Total Protein 7.4 6.0 - 8.0 g/dL 09/08/2025 5:03 PM [facility] Albumin 4.1 3.2 - 5.0 g/dL 09/08/2025 5:03 PM [facility] Total Bilirubin 1.3 0.0 - 1.4 mg/dL 09/08/2025 5:03 PM [facility] Blood Venous blood specimen / Unknown Venipuncture / Unknown 09/08/2025 12:38 PM EST 09/08/2025 12:38 PM EST us Mikal DIAZ LAB BLOOD ORDERABLES Fin al Result [facility] [address] [place] [address], [place] [phone] * XR Chest 2 Views (09/08/2025 12:05 PM EST) Anatomical Region Laterality Modality Body Radiographic Rachel ging 09/08/2025 3:32 PM EST Impressions 09/08/2025 3:38 PM EST No evidence of an acute chest process. POS - [id number] -------- FINAL REPORT -------- Dictated By: Maribell Chen Dictated Date: 09/08/2025 15:32 ET Assigned Physician: Maribell Chen Reviewed and Electronically Signed By: Maribell Chen Signed Date: 09/08/2025 15:38 ET Workstation ID: [id number] Transcribed By: Self Edit Transcribed Date: 09/08/2025 [...] of an acute chest process. POS - [id number] -------- FINAL REPORT -------- Dictated By: Maribell Chen Dictated Date: 09/08/2025 15:32 ET Assigned Physician: Maribell Chen Reviewed and Electronically Signed By: Maribell Chen Signed Date: 09/08/2025 15:38 ET Workstation ID: [id number] Transcribed By: Self Edit Transcribed Date: 09/08/2025 15:32 ET Mikal DIAZ IMG XR PROCEDURES Final Result * (ABNORMAL) Microalbumin creatinine urine ratio (05/06/2025 11:07 AM EDT) Creatinine, Urine 297.0 mg/dL LAB CHEMISTRY METHOD 05/06/2025 1:31 PM EDT [facility] Microalb, Ur 73.6(H) 0.0 - 29.0 mg/L LAB CHEMISTRY METHOD 05/06/2025 1:31 PM EDT [facility] Microalb/Crea t Ratio 25 <30 mg/g creat LAB CHEMISTRY METHOD 05/06/2025 1:31 PM EDT [facility] Urine Urine specimen obtained by clean catch procedure / Unknown Non-blood Collection / Unknown 05/06/2025 11:07 AM EDT 05/06/2025 11:07 AM EDT Tommie DIAZ LAB URINE ORDERABLES Madhavi l Result Performing Organization Address City/[facility]/ZIP Co de Phone Number [facility] [address] [place] [address], * LDL cholesterol, direct (05/06/2025 11:07 AM EDT) LDL Direct 76 <=100 mg/dL LAB CHEMISTRY METHOD 05/06/2025 3:22 PM EDT [facility] Blood Venous blood specimen / Unknown Venipuncture / Unknown 05/06/2025 11:07 AM EDT 05/06/2025 11:07 AM EDT Tommie DIAZ LAB BLOOD ORDERABLES Madhavi l Result [facility] [address] [place] [address], [place] [phone] * (ABNORMAL) Hemoglobin A1c (05/06/2025 11:07 AM EDT) [facility] Hemoglobin A1C 7.0(H) <6.5 % LAB CHEMISTRY METHOD 05/06/2025 1:50 PM EDT [facility] Mean Bld Glu Estim. 154 mg/dL LAB CHEMISTRY METHOD 05/06/2025 1:50 PM EDT [facility] Blood Venous blood specimen / Unknown Venipuncture / Unknown 05/06/2025 11:07 AM EDT 05/06/2025 11:07 AM EDT Tommie DIAZ LAB BLOOD ORDERABLES Madhavi l Result [facility] [address] [place] [address], * [facility]03/16/2021[facility] Hepatitis C Screening abstracted [facility] Provider HEALTH MAINTENANCE Final Result * Colonoscopy (10/24/2015) [facility] Colonoscopy no interpretation , abstracted Anatomical Region Laterality Modality Other [facility] Matthew [facility]ITCHARD HEALTH MAINTENANCE Final Result * HIV Screening (08/14/2004) [facility] HIV Screening abstracted [facility] Provider HEALTH MAINTENANCE Final Result from Last 3 Months or Most Recently Relevant to [place] [id number] [facility] [employer] Care Teams Brain Surgeon Relationship Specialty Start Date End Date Tommie Dunn PA [address] [place] [address] PCP - General Internal Medicine 01/05/21
--- OUTSIDE RECORDS SUMMARY | 2025-09-09 00:58 | XMS_ITS | Encounter Summary ---
Author Organization [facility] Address [address] [place] [address] Care Team Providers Care Still Cleaner Name Role Phone Tommie Dunn Primary Care Provider [phone] Encounter Details Date Type Department Care Team (Late st Contact Info) Description 09/08/2025 Results Follow-Up Adult Medicine [facility] [address] [place], [place] [phone] Mikal Dangelo PA [address] [place], [place] Social History Tobacco Use Types Packs/Day [...] care for your loved ones. For example, early childhood teacher assistant or elderly care for an older adult? [...] as of this encounter Progress Notes * JOE Jaime - 09/08/2025 4:26 PM EST Addendum: Documentation was placed in wrong encounter. Please see Telephone encounter 09/08/25. documented in this encounter Plan of Treatment Upcoming Encounters Date Type Department Care Team (Late st Contact Info) Description 09/27/2025 10:00 AM EST Consult Adult Medicine [address] [phone] Tommie Dunn PA [address] [place] [phone] 10/13/2025 3:30 PM EST Office Visit Adult Medicine [address] [phone] Tommie Dunn PA [address] [place] [phone] 11/02/2025 10:30 AM EST Consult Gastroenterology - [address] [phone] Laura Melvin PA [address] [place] [phone] documented as of this encounter Visit Diagnoses Not on filedocumented in this encounter Additional Health Concerns Assessment Noted Time PHQ-9 Depression Total Score: 0 05/06/20 25 10:18 AM EDT documented as of this encounter Care Teams Still Cleaner Relationship Specialty Start Date End Date Tommie Dunn PA [address] [place] [address] PCP - General Internal Medicine 01/05/21 documented as of this encounter
== END 2025-09-08 21:04 | disposition home or self-care (01) ==
PROVIDERS: Physician Assistant Medical; Emergency Provider Emergency Medicine; PCP Physician Assistant Medical
DX: U07.1 COVID-19 (principal); E11.65 Type 2 diabetes mellitus with hyperglycemia; R05.9 Cough, unspecified
CPT/HCPCS: 36415; 71046; 80048; 80076; 82010; 82803; 82947; 83605; 83735; 84484; 85025; 87040; 87637; 93005; 96361; 96374; 99284; 99285

== ENCOUNTER → 2025-09-08 18:04 | Outpatient (BNV) | payer OTHER, SELFPAY | PROVIDERS: Emergency Provider Emergency Medicine; PCP Physician Assistant Medical; Visit Provider Internal Medicine Cardiovascular Disease | DX: I42.2 Other hypertrophic cardiomyopathy (principal) | CPT/HCPCS: 93010 ==